=== PATIENT | female | born 1965 | race Caucasian/White ===

== ENCOUNTER 2018-05-07 22:33 | Emergency (ER) | payer BC ==
[2018-05-07 22:47] VITALS: BP 154/83; PULSE 94; RESP 18; TEMP 99.5; O2SAT 99
[2018-05-07] MEDS ORDERED: guaiFENesin DM 200 mg-20 mg/10 ml UD PO STA (23:05)
--- NOTE | 2018-05-07 23:10 | C.PDOC ---
History Of Present Illness Patient complains of sore throat, nasal congestion, subjective fever and cough for 3 days. Patient denies chest pain, SOB, weakness, headache, neck pain, vomiting or diarrhea Time Seen by Provider: 05/07/18 22:49 Chief Complaint (Nursing): Cough, Cold, Congestion History Per: Patient History/Exam Limitations: no limitations Onset/Duration Of Symptoms: Days Current Symptoms Are (Timing): Still Present Location Of Pain: Throat Associated Symptoms: Fever, Sore Throat, Cough Past Medical History Reviewed: Historical Data, Nursing Documentation, Vital Signs Vital Signs: Last Vital Signs Temp 99.5 F 05/07/18 22:38 Pulse 94 H 05/07/18 22:38 Resp 18 05/07/18 22:38 BP 154/83 H 05/07/18 22:38 Pulse Ox 99 05/07/18 22:38 - Medical History PMH: Diabetes, HTN Surgical History: Appendectomy Family History: States: Unknown Family Hx - Social History Hx Alcohol Use: No Hx Substance Use: No - Immunization History Hx Tetanus Toxoid Vaccination: No Hx Influenza Vaccination: Yes Hx Pneumococcal Vaccination: No Review Of Systems Constitutional: Positive for: Fever, Malaise Eyes: Negative for: Vision Change, Redness ENT: Positive for: Nose Congestion, Throat Pain. Negative for: Ear Pain Cardiovascular: Negative for: Chest Pain, Palpitations Respiratory: Positive for: Cough, Sputum. Negative for: Shortness of Breath, Wheezing Gastrointestinal: Negative for: Abdominal Pain Skin: Negative for: Rash Neurological: Negative for: Headache Physical Exam - Physical Exam Appears: Well, Non-toxic, No Acute Distress Skin: Warm, Dry, No Diaphoretic, No Pale Head: Atraumatic, Normacephalic Eye(s): bilateral: Normal Inspection, PERRL, EOMI Ear(s): Bilateral: Normal Nose: Normal, No Flaring Oral Mucosa: Moist Tongue: Normal Appearing Lips: Normal Appearing Throat: Normal, No Erythema, No Exudate, No Drooling, No Mass Neck: Normal ROM, No Paracervical Tenderness Lymphatic: Normal Exam, No Adenopathy Chest: Symmetrical Cardiovascular: Rhythm Regular, No Murmur Respiratory: Normal Breath Sounds, No Accessory Muscle Use, No Rales, No Rhonchi, No Wheezing, No Plerual Rub Extremity: Bilateral: Atraumatic, Normal ROM Neurological/Psych: Oriented x3, Normal Speech Gait: Steady ED Course And Treatment O2 Sat by Pulse Oximetry: 99 Medical Decision Making Medical Decision Making: Impression: cough, congestion viral URI Plan: Claritin and Robitussin Patient appears clinically well, nontoxic and in no respiratory distress. Lungs were clear bilaterally with good air intake. No clinical signs of dehydration, pneumonia, sepsis. No further ED workup indicated. Patient advised to take cough syrup and rest Disposition Counseled Patient/Family Regarding: Diagnosis, Need For Followup, Rx Given - Disposition Disposition: HOME/ ROUTINE Disposition Time: 23:35 Condition: GOOD Additional Instructions: Tiene franca infeccin viral de las vas respiratorias superiores. [place] Tylenol o Motrin alternando cada 4-6 horas para Fever 100.4F o superior. Descansa y tiago muchos lquidos. Puede usar humidificador de vapor fro o vaporizador en la h abitacin. [place] la medicina para la tos segn sea necesario cada 6-8 horas. Jesse un seguimiento con sanchez mdico de cabecera o clnica en 1 semana para franca evaluacin adicional Prescriptions: Benzocaine/Menthol [Cepacol Sore Throat] 1 ari MM Q2 #30 ari Benzonatate [Tessalon Perles] 100 mg PO TID #30 sgl Loratadine 10 mg PO DAILY #20 tablet Instructions: Upper Respiratory Infection (ED) Forms: [facility] (Citizen Of [place]) Print Language: NICARAGUAN - POA Present On Arrival: None - Clinical Impression Clinical Impression: Upper respiratory infection
[2018-05-07] MEDS ORDERED: guaiFENesin 200 mg/10 ml Syrup UD ONE (23:15)
== END 2018-05-07 23:43 | disposition home or self-care (01) ==
LOC: C.ER 22:33
DX: J06.9 Acute upper respiratory infection, unspecified (principal)